=== PATIENT | female | born 1950 | race African-American/Black ===

== ENCOUNTER 2018-05-06 21:10 | Inpatient (IN) | payer MEDICARE, OTHER ==
[~2018-05-06] VITALS: Ht 167.6 cm; Wt 118.9 kg
--- NOTE | 2018-05-06 21:25 | NUR ---
PT C/O GENERAL MALAISEx2 WEEKS ACCOMPANIED W/ N/V. STATES INTERMITTENT PERIODS OF DIZZINESS W/ ACTIVITY. DENIES CP/SOB. PT HX OF AFIB AND CHF. 5 LEAD IN ED SHOWS HR BETWEEN 110-155. PT STATES MISSING "A COUPLE DOSES OF MY XARELTO" THIS LAST WEEK. ALL MONITORING APPLIED. CALL LIGHT WITHIN REACH.
[2018-05-06] MEDS ORDERED: DILTIAZEM 5 MG/ML, 5ML ONE (21:41)
[2018-05-06] MEDS ORDERED: ONDANSETRON 2MG/ML, 2ML ONE (21:51)
[2018-05-06] MEDS ORDERED: DILTIAZEM 5 MG/ML, 5ML IV ONE (22:00)
[2018-05-06] MEDS ORDERED: ONDANSETRON 2MG/ML, 2ML IVPush ONE (22:00)
[2018-05-06] MEDS ORDERED: SODIUM CHLORIDE 0.9% 1,000ML IVBOLUS ONE (22:00)
[2018-05-06 22:04] LABS: INTERNATIONAL NORMALIZED RATIO 1.22 (0.93-1.1); PROTHROMBIN TIME 12.8 Seconds (9.6-11.5)
[2018-05-06 22:07] LABS: ALBUMIN 3.5 g/dL (3.4-5.0); ANION GAP 9 mmol/L (5-15); CALCIUM 8.9 mg/dL (8.5-10.1); CHLORIDE 111 mmol/L (98-107); CREATININE 1.97 mg/dL (0.55-1.02)
[2018-05-06 22:08] LABS: BASOPHILS # (AUTO) 0.04 x10^3/uL (0-0.1); BASOPHILS % (AUTO) 1 % (0-1); EOSINOPHILS # (AUTO) 0.09 x10^3/uL (0-0.4); EOSINOPHILS % (AUTO) 1 % (1-7); LYMPHOCYTES # (AUTO) 1.41 x10^3/uL (1-3.4); LYMPHOCYTES % (AUTO) 21 % (22-44); MD NO; MEAN CORPUSCULAR HEMOGLOBIN 30.4 pg (27.0-34.8); MEAN CORPUSCULAR HGB CONC 33.2 g/dL (32.4-35.8); MEAN CORPUSCULAR VOLUME 91.7 fL (80-100); MEAN PLATELET VOLUME 8.7 fL (7.4-10.4); MONOCYTES % (AUTO) 9 % (2-9); NEUTROPHILS # (AUTO) 4.72 x10^3/uL (1.8-6.8); NEUTROPHILS % (AUTO) 69 % (42-75); PLATELET COUNT 220 x10^3/uL (130-400); RED BLOOD COUNT 4.47 x10^6/uL (3.82-5.3); RED CELL DISTRIBUTION WIDTH 17.1 % (9.6-15.2)
--- NOTE | 2018-05-06 22:09 | NUR ---
PT DOES NOT KNOW ALL MEDICATIONS. MED REC POSTPONED.
[2018-05-06 22:10] LABS: TROPONIN I < 0.015 ng/mL (0.000-0.045)
[2018-05-06] MEDS ORDERED: DILTIAZEM (22:10)
[2018-05-06] MEDS ORDERED: METOPROLOL (22:10)
[2018-05-06] MEDS ORDERED: RIVA10TA2 PO (22:10)
[2018-05-06] MEDS ORDERED: DILTIAZEM 60 MG TABLET ONE (22:11)
[2018-05-06] MEDS ORDERED: ACETAMINOPHEN 500 MG TABLET ONE (22:15)
[2018-05-06] MEDS ORDERED: DILTIAZEM 30 MG TABLET PO SCH (22:30)
[2018-05-06] MEDS ORDERED: ACETAMINOPHEN 500 MG TABLET PO ONE (22:30)
[2018-05-06] MEDS ORDERED: DILTIAZEM 30 MG TABLET PO ONE (23:00)
[2018-05-06 23:22] LABS: RAPID INFLUENZA A Negative (Negative); RAPID INFLUENZA B Negative (Negative)
--- NOTE | 2018-05-06 23:27 | NUR ---
PT HR REMAINS 80-110. AWARE. NO NEW ORDERS AT THIS TIME. NADN. NO IMMEDIATE NEEDS FROM PT. PT TBADM. AWAITING ADM BED.
[2018-05-06] MEDS: SODIUM CHLORIDE 0.9% 1,000 ML IV SCH (23:54)
[2018-05-07] MEDS ORDERED: LABETALOL 5MG/ML, 20ML IVPush PRN
[2018-05-07] MEDS ORDERED: POLYETHYLENE GLYCOL 17 GM PACKET PO PRN
[2018-05-07] MEDS ORDERED: DOCUSATE 100 MG CAPSULE PO PRN
[2018-05-07] MEDS ORDERED: DILTIAZEM 125 MG in SODIUM CHLORIDE 0.9% 100 ML IV PRN
[2018-05-07] MEDS ORDERED: BISACODYL 10 MG SUPP PR PRN
[2018-05-07] MEDS ORDERED: hydrALAzine 20 MG/ML, 1ML IVPush PRN
--- NOTE | 2018-05-07 00:24 | NUR ---
PT IN [place]. TO BE TRANSPORTED WHEN BACK.
[2018-05-07 00:37] LABS: FREE T4 (FREE THYROXINE) 1.49 ng/dL (0.76-1.46); THYROID STIMULATING HORMONE 1.68 mIU/L (0.358-3.740)
[2018-05-07 00:52] LABS: HEMOGLOBIN A1C 6.1 % (4.2-6.3)
[2018-05-07 01:05] VITALS: BP 127/79
[2018-05-07] MEDS ORDERED: DILTIAZEM 125 MG in SODIUM CHLORIDE 0.9% 100 ML IV SCH (02:30)
[2018-05-07 05:41] LABS: CHLORIDE 114 mmol/L (98-107)
[2018-05-07 05:44] LABS: BASOPHILS # (AUTO) 0.04 x10^3/uL (0-0.1); BASOPHILS % (AUTO) 1 % (0-1); EOSINOPHILS % (AUTO) 2 % (1-7); LYMPHOCYTES # (AUTO) 1.15 x10^3/uL (1-3.4); LYMPHOCYTES % (AUTO) 22 % (22-44); MD NO; MEAN CORPUSCULAR HEMOGLOBIN 29.9 pg (27.0-34.8); MEAN CORPUSCULAR HGB CONC 32.6 g/dL (32.4-35.8); MEAN CORPUSCULAR VOLUME 91.6 fL (80-100); MEAN PLATELET VOLUME 9.1 fL (7.4-10.4); MONOCYTES # (AUTO) 0.58 x10^3/uL (0.2-0.8); MONOCYTES % (AUTO) 11 % (2-9); NEUTROPHILS # (AUTO) 3.42 x10^3/uL (1.8-6.8); NEUTROPHILS % (AUTO) 65 % (42-75); PLATELET COUNT 208 x10^3/uL (130-400); RED BLOOD COUNT 4.04 x10^6/uL (3.82-5.3); RED CELL DISTRIBUTION WIDTH 17.1 % (9.6-15.2)
[2018-05-07 05:45] LABS: ALANINE AMINOTRANSFERASE 80 U/L (12-78); ALBUMIN 3.2 g/dL (3.4-5.0); ALKALINE PHOSPHATASE 89 U/L (45-117); ANION GAP 5 mmol/L (5-15); BILIRUBIN,TOTAL 0.7 mg/dL (0.2-1.0); CALCIUM 8.7 mg/dL (8.5-10.1); CHOL/HDL RATIO 2.7; CHOLESTEROL, TOTAL 104 mg/dL (140-239); CREATININE 1.86 mg/dL (0.55-1.02); HDL CHOL % 38 % (28-40); HDL CHOLESTEROL (DIRECT) 39 mg/dL (40-60); LDL CHOLESTEROL,CALCULATED 53 mg/dL (54-169); LDL/HDL RATIO 1.4 (0.5-3.0); TOTAL PROTEIN 6.2 g/dL (6.4-8.2); TRIGLYCERIDES 62 mg/dL (50-200); VLDL CHOLESTEROL 12 mg/dL (0-25)
[2018-05-07 07:10] VITALS: BP 107/69
[2018-05-07] MEDS: RIVAROXABAN 10 MG TABLET PO SCH (08:30)
[2018-05-07] MEDS: SODIUM CHLORIDE 0.9% 1,000 ML IV SCH (08:30)
[2018-05-07] MEDS ORDERED: POTASSIUM CHLORIDE 40 MEQ in SODIUM CHLORIDE 0.9% 500 ML IV ONE (10:30)
[2018-05-07 13:15] VITALS: BP 119/68
[2018-05-07 20:26] VITALS: BP 116/74
[2018-05-07] MEDS: ONDANSETRON 2MG/ML, 2ML IVPush PRN (21:07)
[2018-05-08] MEDS ORDERED: DILTIAZEM 125 MG in SODIUM CHLORIDE 0.9% 100 ML IV PRN
[2018-05-08] MEDS ORDERED: ALBUTEROL SULFATE 2.5 MG/3 ML NPPB PRN (00:30)
[2018-05-08 01:45] VITALS: BP 104/71
[2018-05-08] MEDS: ONDANSETRON 2MG/ML, 2ML IVPush PRN ×3 (02:44→18:19)
[2018-05-08] MEDS: DILTIAZEM 125 MG in SODIUM CHLORIDE 0.9% 100 ML IV SCH ×2 (05:13→15:30)
[2018-05-08 06:55] VITALS: BP 101/71
[2018-05-08 07:51] LABS: ANION GAP 10 mmol/L (5-15); CHLORIDE 112 mmol/L (98-107); CREATININE 2.31 mg/dL (0.55-1.02)
[2018-05-08 08:01] LABS: CALCIUM 8.5 mg/dL (8.5-10.1)
[2018-05-08] MEDS: RIVAROXABAN 10 MG TABLET PO SCH (08:18)
[2018-05-08] MEDS ORDERED: DIGOXIN 0.25 MG/ML, 2ML IVPush ONE (11:30)
[2018-05-08 15:59] VITALS: BP 136/93
[2018-05-08 19:22] VITALS: BP 142/89
[2018-05-08] MEDS: morphine SULFATE 10 MG/ML, 1ML IVPush PRN ×2 (20:15→23:31)
[2018-05-09] MEDS: ONDANSETRON 2MG/ML, 2ML IVPush PRN ×4 (00:10→20:17)
[2018-05-09 02:55] VITALS: BP 103/67
[2018-05-09] MEDS: morphine SULFATE 10 MG/ML, 1ML IVPush PRN ×3 (02:56→14:41)
[2018-05-09] MEDS: DILTIAZEM 125 MG in SODIUM CHLORIDE 0.9% 100 ML IV SCH ×2 (03:23→14:41)
[2018-05-09] MEDS: RIVAROXABAN 10 MG TABLET PO SCH (07:51)
[2018-05-09] MEDS: DIGOXIN 0.25 MG TABLET PO SCH (07:51)
[2018-05-09 10:46] LABS: ANION GAP 10 mmol/L (5-15); CALCIUM 8.8 mg/dL (8.5-10.1); CHLORIDE 112 mmol/L (98-107)
[2018-05-09 10:47] LABS: CREATININE 1.97 mg/dL (0.55-1.02)
[2018-05-09] MEDS ORDERED: HEPARIN 5,000 UNITS/ML, 1ML IV PRN (12:00)
[2018-05-09] MEDS ORDERED: HEPARIN 5,000 UNITS/ML, 1ML IV ONE (12:00)
[2018-05-09] MEDS ORDERED: HEPARIN 25,000 UNITS/500ML PMX 500 ML IV PRN (12:00)
[2018-05-09 13:42] VITALS: BP 134/83
[2018-05-09] MEDS ORDERED: GASTROGRAFIN 120 ML SOLN PO ONE (18:25)
[2018-05-09 19:29] VITALS: BP 136/84
[2018-05-10 02:56] VITALS: BP 124/83
[2018-05-10] MEDS: DILTIAZEM 125 MG in SODIUM CHLORIDE 0.9% 100 ML IV SCH ×2 (03:01→17:00)
[2018-05-10] MEDS: morphine SULFATE 10 MG/ML, 1ML IVPush PRN ×4 (05:30→20:53)
[2018-05-10] MEDS: ONDANSETRON 2MG/ML, 2ML IVPush PRN ×2 (05:30→20:53)
[2018-05-10 06:19] LABS: ANION GAP 9 mmol/L (5-15); CALCIUM 8.8 mg/dL (8.5-10.1); CHLORIDE 112 mmol/L (98-107); CREATININE 1.86 mg/dL (0.55-1.02)
[2018-05-10 06:31] LABS: BASOPHILS # (AUTO) 0.02 x10^3/uL (0-0.1); BASOPHILS % (AUTO) 0 % (0-1); EOSINOPHILS # (AUTO) 0.11 x10^3/uL (0-0.4); EOSINOPHILS % (AUTO) 2 % (1-7); LYMPHOCYTES % (AUTO) 15 % (22-44); MD NO; MEAN CORPUSCULAR HEMOGLOBIN 30.7 pg (27.0-34.8); MEAN CORPUSCULAR HGB CONC 33.5 g/dL (32.4-35.8); MEAN CORPUSCULAR VOLUME 91.8 fL (80-100); MEAN PLATELET VOLUME 8.7 fL (7.4-10.4); MONOCYTES # (AUTO) 0.83 x10^3/uL (0.2-0.8); MONOCYTES % (AUTO) 12 % (2-9); NEUTROPHILS # (AUTO) 5.16 x10^3/uL (1.8-6.8); NEUTROPHILS % (AUTO) 72 % (42-75); PLATELET COUNT 243 x10^3/uL (130-400); RED BLOOD COUNT 4.23 x10^6/uL (3.82-5.3); RED CELL DISTRIBUTION WIDTH 17.1 % (9.6-15.2)
[2018-05-10 07:15] VITALS: BP 123/86
[2018-05-10] MEDS: DIGOXIN 0.25 MG TABLET PO SCH (08:52)
[2018-05-10] MEDS ORDERED: HEPARIN 5,000 UNITS/ML, 1ML IV ONE (09:00)
[2018-05-10] MEDS: HEPARIN 25,000 UNITS/500ML PMX 500 ML IV PRN (10:31)
[2018-05-10] MEDS ORDERED: FUROSEMIDE 40 MG TABLET ONE (10:38)
[2018-05-10] MEDS: FUROSEMIDE 40 MG TABLET PO SCH (10:41)
[2018-05-10] MEDS: ONDANSETRON ODT 4 MG PO PRN (12:13)
[2018-05-10 14:27] VITALS: BP 144/71
[2018-05-10 19:28] VITALS: BP 145/107
[2018-05-10 19:42] VITALS: BP 151/96
[2018-05-11] MEDS: morphine SULFATE 10 MG/ML, 1ML IVPush PRN ×5 (00:56→20:04)
[2018-05-11 00:57] VITALS: BP 120/78
[2018-05-11] MEDS: HEPARIN 5,000 UNITS/ML, 1ML IV PRN ×2 (01:17→15:33)
[2018-05-11] MEDS: DILTIAZEM 125 MG in SODIUM CHLORIDE 0.9% 100 ML IV SCH ×2 (05:00→20:04)
[2018-05-11 07:07] VITALS: BP 127/68
[2018-05-11 07:24] LABS: ANION GAP 8 mmol/L (5-15); CALCIUM 8.8 mg/dL (8.5-10.1); CHLORIDE 112 mmol/L (98-107); CREATININE 1.78 mg/dL (0.55-1.02)
[2018-05-11 07:34] LABS: MEAN CORPUSCULAR HEMOGLOBIN 30.1 pg (27.0-34.8); MEAN CORPUSCULAR HGB CONC 32.5 g/dL (32.4-35.8); MEAN CORPUSCULAR VOLUME 92.6 fL (80-100); MEAN PLATELET VOLUME 8.3 fL (7.4-10.4); PLATELET COUNT 226 x10^3/uL (130-400); RED BLOOD COUNT 4.19 x10^6/uL (3.82-5.3); RED CELL DISTRIBUTION WIDTH 17.6 % (9.6-15.2)
[2018-05-11] MEDS: FUROSEMIDE 40 MG TABLET PO SCH (08:32)
[2018-05-11] MEDS: DIGOXIN 0.25 MG TABLET PO SCH (08:33)
[2018-05-11 08:48] LABS: MD YES
[2018-05-11 08:50] LABS: BAND#(MANUAL) 0.12 x10^3/uL; BANDS%(MANUAL) 2 % (0-7); BASOS#(MANUAL) 0.06 x10^3/uL (0-0.1); BASOS% (MANUAL) 1 % (0-1); EOS#(MANUAL) 0.25 x10^3/uL (0.0-0.4); EOS% (MANUAL) 4 % (1-7); LYMPH#(MANUAL) 0.99 x10^3/uL (1-3.4); LYMPHS% (MANUAL) 16 % (22-44); METAMYELOCYTES# (MANUAL) 0.06 x10^3/uL (0-0); METAMYELOCYTES% (MANUAL) 1 % (0-1); MONOS#(MANUAL) 0.87 x10^3/uL (0.3-2.7); MONOS% (MANUAL) 14 % (2-9); REACTIVE LYMPHS # (MANUAL) 0.06 x10^3/uL (0-0); REACTIVE LYMPHS % (MANUAL) 1 % (0-0); SEG#(MANUAL) 3.78 x10^3/uL (1.8-6.8); SEGS% (MANUAL) 61 % (42-75)
[2018-05-11 08:51] LABS: <PLATELET ESTIMATE> ADEQUATE; <PLT MORPHOLOGY> NORMAL PLT MORPH; <RBC MORPHOLOGY> NORMAL
[2018-05-11] MEDS ORDERED: FUROSEMIDE 40 MG TABLET PO SCH (09:00)
[2018-05-11 14:25] VITALS: BP 106/74
[2018-05-11] MEDS: ONDANSETRON ODT 4 MG PO PRN (14:36)
[2018-05-11] MEDS: HEPARIN 25,000 UNITS/500ML PMX 500 ML IV PRN (15:36)
[2018-05-11] MEDS: ONDANSETRON 2MG/ML, 2ML IVPush PRN (17:52)
[2018-05-11] MEDS ORDERED: METOPROLOL TARTRATE 25 MG TABLET PO SCH (18:00)
[2018-05-11 18:53] VITALS: BP 104/70
[2018-05-12] MEDS: morphine SULFATE 10 MG/ML, 1ML IVPush PRN ×5 (00:08→21:39)
[2018-05-12] MEDS: ONDANSETRON 2MG/ML, 2ML IVPush PRN ×4 (00:08→19:55)
[2018-05-12 00:32] VITALS: BP 100/69
[2018-05-12 02:00] LABS: ANION GAP 7 mmol/L (5-15); CALCIUM 8.3 mg/dL (8.5-10.1); CHLORIDE 109 mmol/L (98-107); CREATININE 1.58 mg/dL (0.55-1.02)
[2018-05-12] MEDS: HEPARIN 5,000 UNITS/ML, 1ML IV PRN (02:34)
[2018-05-12 09:20] VITALS: BP 111/73
[2018-05-12] MEDS: DIGOXIN 0.25 MG TABLET PO SCH (09:28)
[2018-05-12] MEDS: FUROSEMIDE 40 MG TABLET PO SCH (09:28)
[2018-05-12] MEDS: HEPARIN 25,000 UNITS/500ML PMX 500 ML IV PRN (12:47)
[2018-05-12] MEDS: DILTIAZEM 125 MG in SODIUM CHLORIDE 0.9% 100 ML IV SCH (12:50)
[2018-05-12 15:25] VITALS: BP 124/69
[2018-05-12 18:37] VITALS: BP 123/92
[2018-05-13 01:23] VITALS: BP 119/84
[2018-05-13 04:54] LABS: BASOPHILS # (AUTO) 0.02 x10^3/uL (0-0.1); BASOPHILS % (AUTO) 0 % (0-1); EOSINOPHILS # (AUTO) 0.14 x10^3/uL (0-0.4); EOSINOPHILS % (AUTO) 3 % (1-7); LYMPHOCYTES # (AUTO) 0.71 x10^3/uL (1-3.4); LYMPHOCYTES % (AUTO) 14 % (22-44); MD NO; MEAN CORPUSCULAR HEMOGLOBIN 29.9 pg (27.0-34.8); MEAN CORPUSCULAR HGB CONC 32.6 g/dL (32.4-35.8); MEAN CORPUSCULAR VOLUME 91.6 fL (80-100); MEAN PLATELET VOLUME 8.3 fL (7.4-10.4); MONOCYTES % (AUTO) 10 % (2-9); NEUTROPHILS # (AUTO) 3.69 x10^3/uL (1.8-6.8); NEUTROPHILS % (AUTO) 73 % (42-75); PLATELET COUNT 215 x10^3/uL (130-400); RED BLOOD COUNT 3.99 x10^6/uL (3.82-5.3); RED CELL DISTRIBUTION WIDTH 17.1 % (9.6-15.2)
[2018-05-13] MEDS: morphine SULFATE 10 MG/ML, 1ML IVPush PRN ×2 (04:56→22:49)
[2018-05-13 05:04] LABS: ALANINE AMINOTRANSFERASE 51 U/L (12-78); ANION GAP 8 mmol/L (5-15); CALCIUM 8.9 mg/dL (8.5-10.1); CHLORIDE 108 mmol/L (98-107); CREATININE 1.37 mg/dL (0.55-1.02)
[2018-05-13 05:07] LABS: ALKALINE PHOSPHATASE 83 U/L (45-117); BILIRUBIN,TOTAL 0.5 mg/dL (0.2-1.0); TOTAL PROTEIN 6.2 g/dL (6.4-8.2)
[2018-05-13 07:29] VITALS: BP 123/82
[2018-05-13] MEDS: DIGOXIN 0.25 MG TABLET PO SCH (07:31)
[2018-05-13] MEDS: ONDANSETRON 2MG/ML, 2ML IVPush PRN (07:31)
[2018-05-13] MEDS: FUROSEMIDE 40 MG TABLET PO SCH (09:04)
[2018-05-13] MEDS ORDERED: POTASSIUM CHLORIDE 40 MEQ in SODIUM CHLORIDE 0.9% 500 ML IV ONE (10:00)
[2018-05-13] MEDS: DILTIAZEM 125 MG in SODIUM CHLORIDE 0.9% 100 ML IV SCH (12:07)
[2018-05-13 14:15] VITALS: BP 141/93
[2018-05-13] MEDS ORDERED: FENTANYL PF 250 MCG/5ML ONE (18:47)
[2018-05-13] MEDS ORDERED: MIDAZOLAM 1 MG/ML, 2ML ONE (18:48)
[2018-05-13] MEDS ORDERED: BUPIVACAINE/PF 0.5% ONE (19:10)
[2018-05-13] MEDS ORDERED: ONDANSETRON 2MG/ML, 2ML ONE ×2 (19:24→20:47)
[2018-05-13] MEDS ORDERED: ROCURONIUM 10 MG/ML,10ML ONE (19:24)
[2018-05-13] MEDS ORDERED: SUCCINYLCHOLINE 20 MG/ML, 10ML ONE (19:24)
[2018-05-13] MEDS ORDERED: CEFAZOLIN 1,000 MG ONE (19:24)
[2018-05-13] MEDS ORDERED: OXYcodone 5 MG/5 ML ORAL.SOL UDC PO PRN (20:00)
[2018-05-13] MEDS ORDERED: LABETALOL 5MG/ML, 20ML IV PRN (20:00)
[2018-05-13] MEDS ORDERED: hydrALAzine 20 MG/ML, 1ML IV PRN (20:00)
[2018-05-13] MEDS ORDERED: ONDANSETRON ODT 8 MG PO PRN (20:00)
[2018-05-13] MEDS ORDERED: PROMETHAZINE 12.5 MG SUPP PR PRN (20:00)
[2018-05-13] MEDS ORDERED: ONDANSETRON 2MG/ML, 2ML IV PRN (20:00)
[2018-05-13] MEDS ORDERED: THROMBIN 5,000 UNIT VIAL TP ONE (20:11)
[2018-05-13] MEDS ORDERED: SUGAMMADEX 200 MG/2 ML IVPush ONE (20:25)
[2018-05-13] MEDS ORDERED: HYDROmorphone 2 MG/ML, 1ML ONE ×2 (20:47→21:33)
[2018-05-13] MEDS: HYDROmorphone 1 MG/ML, 1ML IV PRN ×5 (20:51→21:35)
[2018-05-13] MEDS ORDERED: FENTANYL PF 100 MCG/2ML ONE (20:53)
[2018-05-13] MEDS: FENTANYL PF 100 MCG/2ML IV PRN ×2 (20:56→21:06)
[2018-05-13 21:50] VITALS: BP 160/83
[2018-05-14] MEDS: morphine SULFATE 10 MG/ML, 1ML IVPush PRN ×4 (00:54→17:52)
[2018-05-14 02:30] VITALS: BP 105/70
[2018-05-14] MEDS: ONDANSETRON 2MG/ML, 2ML IVPush PRN (03:13)
[2018-05-14 05:18] LABS: BASOPHILS # (AUTO) 0.01 x10^3/uL (0-0.1); BASOPHILS % (AUTO) 0 % (0-1); EOSINOPHILS % (AUTO) 0 % (1-7); LYMPHOCYTES # (AUTO) 0.49 x10^3/uL (1-3.4); LYMPHOCYTES % (AUTO) 6 % (22-44); MD NO; MEAN CORPUSCULAR HEMOGLOBIN 30.5 pg (27.0-34.8); MEAN CORPUSCULAR HGB CONC 33.3 g/dL (32.4-35.8); MEAN CORPUSCULAR VOLUME 91.7 fL (80-100); MEAN PLATELET VOLUME 8.2 fL (7.4-10.4); MONOCYTES # (AUTO) 0.54 x10^3/uL (0.2-0.8); MONOCYTES % (AUTO) 7 % (2-9); NEUTROPHILS # (AUTO) 7.05 x10^3/uL (1.8-6.8); NEUTROPHILS % (AUTO) 87 % (42-75); PLATELET COUNT 227 x10^3/uL (130-400); RED CELL DISTRIBUTION WIDTH 17.7 % (9.6-15.2)
[2018-05-14 05:30] LABS: ALBUMIN 3.2 g/dL (3.4-5.0); ANION GAP 8 mmol/L (5-15); CALCIUM 8.6 mg/dL (8.5-10.1); CHLORIDE 105 mmol/L (98-107)
[2018-05-14 05:36] LABS: ALANINE AMINOTRANSFERASE 65 U/L (12-78); ALKALINE PHOSPHATASE 90 U/L (45-117); BILIRUBIN,TOTAL 0.7 mg/dL (0.2-1.0); CREATININE 1.22 mg/dL (0.55-1.02); TOTAL PROTEIN 6.6 g/dL (6.4-8.2)
[2018-05-14 07:35] VITALS: BP 159/86
[2018-05-14] MEDS: PROMETHAZINE 25 MG/ML, 1ML IM PRN ×2 (07:46→20:49)
[2018-05-14] MEDS: FUROSEMIDE 40 MG TABLET PO SCH (07:49)
[2018-05-14] MEDS: DIGOXIN 0.25 MG TABLET PO SCH (07:49)
[2018-05-14 12:33] VITALS: BP 146/84
[2018-05-14] MEDS: DILTIAZEM 60 MG TABLET PO SCH ×2 (13:03→20:48)
[2018-05-14] MEDS: OXYcodone/APAP 5/325MG TABLET PO PRN ×2 (13:03→20:49)
[2018-05-14 19:50] VITALS: BP 126/83
[2018-05-14] MEDS ORDERED: MAGNESIUM SULFATE 4 GM in SODIUM CHLORIDE 0.9% 100 ML IV ONE (20:30)
[2018-05-15 00:55] VITALS: BP 125/79
[2018-05-15] MEDS: DILTIAZEM 125 MG in SODIUM CHLORIDE 0.9% 100 ML IV SCH (02:30)
[2018-05-15] MEDS: DILTIAZEM 60 MG TABLET PO SCH ×3 (04:07→14:35)
[2018-05-15] MEDS: OXYcodone/APAP 5/325MG TABLET PO PRN ×3 (04:57→16:50)
[2018-05-15 06:54] VITALS: BP 110/53
[2018-05-15] MEDS: DIGOXIN 0.25 MG TABLET PO SCH (09:07)
[2018-05-15] MEDS: FUROSEMIDE 40 MG TABLET PO SCH (09:07)
[2018-05-15] MEDS: PROMETHAZINE 25 MG/ML, 1ML IM PRN (11:17)
[2018-05-15] MEDS ORDERED: DILT180C53 PO (11:52)
[2018-05-15] MEDS ORDERED: DOCU-131 PO (11:52)
[2018-05-15] MEDS ORDERED: METO25TA35 PO (11:52)
[2018-05-15] MEDS ORDERED: OXYC-302 PO (11:52)
[2018-05-15] MEDS ORDERED: METOPROLOL TARTRATE 25 MG TABLET PO SCH (12:00)
== END 2018-05-15 17:28 | disposition home or self-care (01) | DRG 417 ==
LOC: ED 23:00 → 5SO 05-07 01:23
PROVIDERS: ADMIT Internal Medicine; ATTEND Internal Medicine
PROC: 0FT44ZZ Resection of Gallbladder, Percutaneous Endoscopic Approach (ICD-10-PCS; principal; 2018-05-13 19:00)
DX: K80.10 Calculus of gallbladder with chronic cholecystitis without obstruction (principal); N17.0 Acute kidney failure with tubular necrosis; D68.69 Other thrombophilia; I13.0 Hypertensive heart and chronic kidney disease with heart failure and stage 1 through stage 4 chronic kidney disease, or unspecified chronic kidney disease; J98.11 Atelectasis; I48.91 Unspecified atrial fibrillation; Z88.6 Allergy status to analgesic agent; Z88.8 Allergy status to other drugs, medicaments and biological substances; E78.5 Hyperlipidemia, unspecified; E86.0 Dehydration; I50.9 Heart failure, unspecified; J45.909 Unspecified asthma, uncomplicated; K82.8 Other specified diseases of gallbladder; N18.3 Chronic kidney disease, stage 3 (moderate); T45.515A Adverse effect of anticoagulants, initial encounter; Y92.89 Other specified places as the place of occurrence of the external cause; Z79.01 Long term (current) use of anticoagulants; Z82.3 Family history of stroke; Z86.711 Personal history of pulmonary embolism; Z79.899 Other long term (current) drug therapy
CPT/HCPCS: 36415; 71045; 74176; 74270; 76700; 78227; 80048; 80053; 80061; 82040; 83036; 83735; 83880; 84439; 84443; 84484; 85025; 85520; 85610; 87400; 88304; 93005; 94640; 96374; 96375; 99291; G0378; J0690; J1170; J1644; J2250; J2405; J2550; J3010; J3475; J3480; J3490; J7613; Q0162; Q9963; A9537; C1760; C9898; J0330; J1160; J2270; J7030; J7040

== ENCOUNTER 2018-05-27 17:41 | Inpatient (IN) | payer MEDICARE ==
[~2018-05-27] VITALS: Ht 167.6 cm; Wt 116.4 kg
[~2018-05-27 17:41] MED LIST: DILT180C53 PO; DILTIAZEM; DOCU-131 PO; FLUT9.9S NS; FURO40TA6 PO; LORA-247 PO; METO25TA35 PO; METOPROLOL; OXYC-302 PO; RIVA10TA2 PO
--- NOTE | 2018-05-27 17:55 | NUR ---
PT TO ED VIA AMBULANCE FOR N/V, ABD PAIN AND PRODUCTIVE COUGH SINCE LAP LUIS FELIPE ON 20-MAY-2018. NO HEMATURIA. CONNECTED TO ALL MONITORS. A FIB RVR, RATE OF 100-160 WTIH EXERTION AND DURING COUGHING. ALL OTHER VSS. AWAITING MD ASSESSMENT AND ORDERS. CALL LIGHT WITHIN REACH. NO NEEDS AT THIS TIME.
[2018-05-27] MEDS ORDERED: SODIUM CHLORIDE FLUSH 10ML SYR IVF ONE (18:30)
--- NOTE | 2018-05-27 18:46 | NUR ---
MD TO BEDSIDE FOR ASSESSMENT. AWAITING ORDERS.
[2018-05-27 18:58] LABS: ALANINE AMINOTRANSFERASE 26 U/L (12-78); ALBUMIN 3.2 g/dL (3.4-5.0); ANION GAP 10 mmol/L (5-15); CALCIUM 8.6 mg/dL (8.5-10.1); CHLORIDE 105 mmol/L (98-107); CREATININE 1.73 mg/dL (0.55-1.02)
[2018-05-27 19:00] LABS: ALKALINE PHOSPHATASE 101 U/L (45-117); BILIRUBIN,TOTAL 0.4 mg/dL (0.2-1.0); TOTAL PROTEIN 7.1 g/dL (6.4-8.2)
[2018-05-27] MEDS ORDERED: MORPHINE SULFATE 4 MG/ML, 1ML IVPush ONE (19:00)
[2018-05-27] MEDS ORDERED: ONDANSETRON 2MG/ML, 2ML IVPush ONE (19:00)
[2018-05-27 19:02] LABS: BASOPHILS # (AUTO) 0.05 x10^3/uL (0-0.1); BASOPHILS % (AUTO) 1 % (0-1); EOSINOPHILS # (AUTO) 0.07 x10^3/uL (0-0.4); EOSINOPHILS % (AUTO) 1 % (1-7); LYMPHOCYTES # (AUTO) 0.93 x10^3/uL (1-3.4); LYMPHOCYTES % (AUTO) 15 % (22-44); MD NO; MEAN CORPUSCULAR HEMOGLOBIN 29.6 pg (27.0-34.8); MEAN CORPUSCULAR HGB CONC 32.7 g/dL (32.4-35.8); MEAN CORPUSCULAR VOLUME 90.5 fL (80-100); MEAN PLATELET VOLUME 8.1 fL (7.4-10.4); MONOCYTES # (AUTO) 0.75 x10^3/uL (0.2-0.8); MONOCYTES % (AUTO) 12 % (2-9); NEUTROPHILS # (AUTO) 4.44 x10^3/uL (1.8-6.8); NEUTROPHILS % (AUTO) 71 % (42-75); PLATELET COUNT 370 x10^3/uL (130-400); RED BLOOD COUNT 4.32 x10^6/uL (3.82-5.3); RED CELL DISTRIBUTION WIDTH 17.3 % (9.6-15.2)
[2018-05-27] MEDS ORDERED: ONDANSETRON 2MG/ML, 2ML ONE (19:12)
[2018-05-27] MEDS ORDERED: MORPHINE SULFATE 4 MG/ML, 1ML ONE (19:13)
--- NOTE | 2018-05-27 19:26 | NUR ---
PT MEDICATED PER JUN. TECH AT BEDSIDE TO COMPLETE EKG. NO NEEDS AT THIS TIME. FAMILY AT BEDSIDE. CALL LIGHT WITHIN REACH.
[2018-05-27 19:34] LABS: C-REACTIVE PROTEIN, QUANT 2.4 mg/dL (0.02-0.49)
--- NOTE | 2018-05-27 19:39 | NUR ---
PT TO CT.
[2018-05-27] MEDS ORDERED: OMNIPAQUE 350 MG/ML, 100ML BOTTLE ONE (19:59)
--- NOTE | 2018-05-27 19:59 | NUR ---
PT BACK FROM CT
--- NOTE | 2018-05-27 20:56 | NUR ---
MD TO BEDSIDE TO UPDATE PT ON POC. NO NEEDS AT THIS TIME. HTN, ALL OHTER VSS. NO NEEDS AT THIS TIME.
[2018-05-27] MEDS ORDERED: ARNUITY ELLIPTA (22:10)
[2018-05-27] MEDS ORDERED: OXYCODONE (22:10)
[2018-05-27 22:30] VITALS: BP 145/95
[2018-05-27] MEDS ORDERED: BISACODYL 10 MG SUPP PR PRN (22:30)
[2018-05-27] MEDS: NS + 20MEQ KCL 1,000 ML IV SCH (23:08)
[2018-05-27] MEDS: METOPROLOL TARTRATE 25 MG TABLET PO SCH (23:09)
[2018-05-27] MEDS: HYDROmorphone 2 MG/ML, 1ML IVPush PRN (23:10)
[2018-05-28 01:36] VITALS: BP 125/87
[2018-05-28] MEDS: HYDROmorphone 2 MG/ML, 1ML IVPush PRN ×3 (04:36→20:18)
[2018-05-28 05:23] LABS: BASOPHILS # (AUTO) 0.04 x10^3/uL (0-0.1); BASOPHILS % (AUTO) 1 % (0-1); EOSINOPHILS # (AUTO) 0.13 x10^3/uL (0-0.4); EOSINOPHILS % (AUTO) 2 % (1-7); LYMPHOCYTES # (AUTO) 0.92 x10^3/uL (1-3.4); LYMPHOCYTES % (AUTO) 16 % (22-44); MD NO; MEAN CORPUSCULAR HEMOGLOBIN 29.6 pg (27.0-34.8); MEAN CORPUSCULAR HGB CONC 32.4 g/dL (32.4-35.8); MEAN CORPUSCULAR VOLUME 91.3 fL (80-100); MEAN PLATELET VOLUME 8.1 fL (7.4-10.4); MONOCYTES % (AUTO) 12 % (2-9); NEUTROPHILS # (AUTO) 3.92 x10^3/uL (1.8-6.8); NEUTROPHILS % (AUTO) 69 % (42-75); PLATELET COUNT 332 x10^3/uL (130-400); RED CELL DISTRIBUTION WIDTH 17.5 % (9.6-15.2)
[2018-05-28 05:31] LABS: ALANINE AMINOTRANSFERASE 24 U/L (12-78); ALBUMIN 3.1 g/dL (3.4-5.0); ANION GAP 7 mmol/L (5-15); CALCIUM 8.6 mg/dL (8.5-10.1); CHLORIDE 106 mmol/L (98-107); CREATININE 1.71 mg/dL (0.55-1.02)
[2018-05-28 05:33] LABS: ALKALINE PHOSPHATASE 101 U/L (45-117); BILIRUBIN,TOTAL 0.5 mg/dL (0.2-1.0); TOTAL PROTEIN 6.7 g/dL (6.4-8.2)
[2018-05-28 08:17] LABS: INTERNATIONAL NORMALIZED RATIO 1.23 (0.93-1.1); PROTHROMBIN TIME 12.9 Seconds (9.6-11.5)
[2018-05-28] MEDS: LORATADINE 10 MG TABLET PO SCH (08:53)
[2018-05-28] MEDS: METOPROLOL TARTRATE 25 MG TABLET PO SCH ×2 (08:54→20:13)
[2018-05-28] MEDS: DILTIAZEM CD 180 MG CAP.ER.24H PO SCH (08:54)
[2018-05-28] MEDS ORDERED: FUROSEMIDE 40 MG TABLET PO SCH (09:00)
[2018-05-28 09:09] VITALS: BP 122/87
[2018-05-28] MEDS ORDERED: MIDAZOLAM 1 MG/ML, 5ML ONE (09:43)
[2018-05-28] MEDS ORDERED: NALOXONE 1 MG/ML, 2ML ONE (09:43)
[2018-05-28] MEDS ORDERED: FENTANYL PF 100 MCG/2ML ONE (09:43)
[2018-05-28] MEDS ORDERED: FLUMAZENIL 0.1 MG/1 ML, 5ML ONE (09:43)
[2018-05-28] MEDS ORDERED: LIDOCAINE-MPF 1%, 5ML ONE (09:45)
[2018-05-28] MEDS: FLUTICASONE NASAL SPRAY 16GM NAS SCH (11:15)
[2018-05-28] MEDS ORDERED: MAGNESIUM SULFATE PMX 2GM/50ML 50 ML IV ONE (11:30)
[2018-05-28] MEDS ORDERED: POTASSIUM CHLORIDE 20 MEQ TAB.ER.PRT PO ONE (11:30)
[2018-05-28 13:04] VITALS: BP 120/81
[2018-05-28 13:43] LABS: MICROSCOPIC INDICATED
[2018-05-28] MEDS: NS + 20MEQ KCL 1,000 ML IV SCH (13:52)
[2018-05-28 14:15] LABS: CULTURE INDICATED? YES
[2018-05-28 19:44] VITALS: BP 106/76
[2018-05-28] MEDS: ACETAMINOPHEN 325 MG TABLET PO PRN (20:13)
[2018-05-29] MEDS: HYDROmorphone 2 MG/ML, 1ML IVPush PRN (00:24)
[2018-05-29 02:34] VITALS: BP 122/78
[2018-05-29] MEDS: NS + 20MEQ KCL 1,000 ML IV SCH ×2 (04:29→18:27)
[2018-05-29 05:27] LABS: BASOPHILS # (AUTO) 0.04 x10^3/uL (0-0.1); BASOPHILS % (AUTO) 1 % (0-1); EOSINOPHILS # (AUTO) 0.07 x10^3/uL (0-0.4); EOSINOPHILS % (AUTO) 2 % (1-7); LYMPHOCYTES # (AUTO) 0.66 x10^3/uL (1-3.4); LYMPHOCYTES % (AUTO) 14 % (22-44); MD NO; MEAN CORPUSCULAR HEMOGLOBIN 29.3 pg (27.0-34.8); MEAN CORPUSCULAR HGB CONC 32.3 g/dL (32.4-35.8); MEAN CORPUSCULAR VOLUME 90.9 fL (80-100); MEAN PLATELET VOLUME 8.1 fL (7.4-10.4); MONOCYTES # (AUTO) 0.57 x10^3/uL (0.2-0.8); MONOCYTES % (AUTO) 12 % (2-9); NEUTROPHILS # (AUTO) 3.26 x10^3/uL (1.8-6.8); NEUTROPHILS % (AUTO) 71 % (42-75); PLATELET COUNT 324 x10^3/uL (130-400); RED BLOOD COUNT 4.03 x10^6/uL (3.82-5.3); RED CELL DISTRIBUTION WIDTH 16.8 % (9.6-15.2)
[2018-05-29 05:39] LABS: ANION GAP 7 mmol/L (5-15); CALCIUM 8.9 mg/dL (8.5-10.1); CHLORIDE 108 mmol/L (98-107); CREATININE 1.53 mg/dL (0.55-1.02)
[2018-05-29 08:43] VITALS: BP 147/97
[2018-05-29] MEDS: METOPROLOL TARTRATE 25 MG TABLET PO SCH ×2 (08:45→20:47)
[2018-05-29] MEDS: FLUTICASONE NASAL SPRAY 16GM NAS SCH (08:45)
[2018-05-29] MEDS: LORATADINE 10 MG TABLET PO SCH (08:45)
[2018-05-29] MEDS: DILTIAZEM CD 180 MG CAP.ER.24H PO SCH (08:45)
[2018-05-29] MEDS ORDERED: DIPHENHYDRAMINE 50 MG/ML, 1ML IVPush PRN (12:30)
[2018-05-29] MEDS: ONDANSETRON 2MG/ML, 2ML IVPush PRN (13:53)
[2018-05-29] MEDS: morphine SULFATE 10 MG/ML, 1ML IVPush PRN ×2 (13:54→18:27)
[2018-05-29 14:41] VITALS: BP 122/85
[2018-05-29 17:00] LABS: INTERNATIONAL NORMALIZED RATIO 1.24 (0.93-1.1)
[2018-05-29] MEDS ORDERED: WARFARIN 5 MG TABLET PO-COUM ONE (18:00)
[2018-05-29 20:06] VITALS: BP 136/82
[2018-05-29] MEDS: ACETAMINOPHEN 325 MG TABLET PO PRN (21:06)
[2018-05-30] VITALS (8 sets, daily range): BP systolic 118–165; BP diastolic 56–109
[2018-05-30] MEDS: morphine SULFATE 10 MG/ML, 1ML IVPush PRN ×4 (04:03→21:17)
[2018-05-30 08:09] LABS: INTERNATIONAL NORMALIZED RATIO 1.28 (0.93-1.1); PROTHROMBIN TIME 13.4 Seconds (9.6-11.5)
[2018-05-30 08:10] LABS: ANION GAP 6 mmol/L (5-15); CALCIUM 8.9 mg/dL (8.5-10.1); CHLORIDE 110 mmol/L (98-107); CREATININE 1.65 mg/dL (0.55-1.02)
[2018-05-30] MEDS: METOPROLOL TARTRATE 25 MG TABLET PO SCH ×2 (08:47→20:49)
[2018-05-30] MEDS: ENOXAPARIN 120MG/0.8ML SQ SCH ×2 (08:47→20:49)
[2018-05-30] MEDS: LORATADINE 10 MG TABLET PO SCH (08:47)
[2018-05-30] MEDS: DILTIAZEM CD 180 MG CAP.ER.24H PO SCH (08:47)
[2018-05-30] MEDS: FLUTICASONE NASAL SPRAY 16GM NAS SCH (08:48)
[2018-05-30] MEDS: ONDANSETRON 2MG/ML, 2ML IVPush PRN ×2 (14:57→19:09)
[2018-05-30] MEDS ORDERED: WARFARIN 5 MG TABLET PO-COUM ONE (18:00)
[2018-05-30] MEDS ORDERED: PROMETHAZINE 25 MG/ML, 1ML IM PRN (23:00)
[2018-05-31] MEDS ORDERED: ALBUTEROL SULFATE 2.5 MG/3 ML ONE (00:26)
[2018-05-31 02:25] VITALS: BP 119/82
[2018-05-31 05:29] LABS: INTERNATIONAL NORMALIZED RATIO 1.31 (0.93-1.1); PROTHROMBIN TIME 13.7 Seconds (9.6-11.5)
[2018-05-31 07:00] VITALS: BP 132/96
[2018-05-31] MEDS: LORATADINE 10 MG TABLET PO SCH (07:47)
[2018-05-31] MEDS: DILTIAZEM CD 180 MG CAP.ER.24H PO SCH (07:47)
[2018-05-31] MEDS: METOPROLOL TARTRATE 25 MG TABLET PO SCH (07:47)
[2018-05-31 07:54] LABS: ANION GAP 7 mmol/L (5-15); CHLORIDE 109 mmol/L (98-107); CREATININE 1.67 mg/dL (0.55-1.02)
[2018-05-31] MEDS: morphine SULFATE 10 MG/ML, 1ML IVPush PRN ×3 (08:00→21:10)
[2018-05-31 09:18] LABS: MEAN CORPUSCULAR HEMOGLOBIN 28.8 pg (27.0-34.8); MEAN CORPUSCULAR HGB CONC 31.6 g/dL (32.4-35.8); MEAN PLATELET VOLUME 7.9 fL (7.4-10.4); PLATELET COUNT 324 x10^3/uL (130-400); RED BLOOD COUNT 4.24 x10^6/uL (3.82-5.3); RED CELL DISTRIBUTION WIDTH 17.5 % (9.6-15.2)
[2018-05-31] MEDS: ENOXAPARIN 120MG/0.8ML SQ SCH ×2 (09:21→21:10)
[2018-05-31 09:22] LABS: BASOPHILS # (AUTO) 0.04 x10^3/uL (0-0.1); BASOPHILS % (AUTO) 1 % (0-1); EOSINOPHILS % (AUTO) 3 % (1-7); LYMPHOCYTES # (AUTO) 0.95 x10^3/uL (1-3.4); LYMPHOCYTES % (AUTO) 24 % (22-44); MD NO; MONOCYTES % (AUTO) 16 % (2-9); NEUTROPHILS # (AUTO) 2.19 x10^3/uL (1.8-6.8); NEUTROPHILS % (AUTO) 57 % (42-75)
[2018-05-31] MEDS: FLUTICASONE NASAL SPRAY 16GM NAS SCH (09:24)
[2018-05-31] MEDS ORDERED: FUROSEMIDE 20 MG/2 ML IV ONE (12:30)
[2018-05-31 12:40] VITALS: BP 123/79
[2018-05-31] MEDS: ALBUTEROL SULFATE 2.5 MG/3 ML NPPB PRN ×2 (12:50→19:04)
[2018-05-31 14:00] VITALS: BP 150/90
[2018-05-31 15:55] LABS: ANION GAP 9 mmol/L (5-15); CALCIUM 8.7 mg/dL (8.5-10.1); CHLORIDE 107 mmol/L (98-107); CREATININE 1.92 mg/dL (0.55-1.02)
[2018-05-31] MEDS ORDERED: OMNIPAQUE 350 MG/ML, 50 ML BOTTLE ONE (16:12)
[2018-05-31] MEDS: ONDANSETRON 2MG/ML, 2ML IVPush PRN (16:24)
[2018-05-31 17:31] VITALS: BP 170/100
[2018-05-31] MEDS: CARVEDILOL 3.125 MG TABLET PO SCH (17:33)
[2018-05-31] MEDS ORDERED: WARFARIN 7.5 MG TABLET PO-COUM ONE (18:00)
[2018-05-31 20:09] VITALS: BP 128/86
[2018-06-01 01:58] VITALS: BP 137/94
[2018-06-01 05:45] LABS: INTERNATIONAL NORMALIZED RATIO 1.45 (0.93-1.1); PROTHROMBIN TIME 15.2 Seconds (9.6-11.5)
[2018-06-01] MEDS: CARVEDILOL 3.125 MG TABLET PO SCH (06:30)
[2018-06-01 07:34] LABS: ANION GAP 9 mmol/L (5-15); CALCIUM 9.1 mg/dL (8.5-10.1); CHLORIDE 106 mmol/L (98-107); CREATININE 1.71 mg/dL (0.55-1.02)
[2018-06-01] MEDS: FLUTICASONE NASAL SPRAY 16GM NAS SCH (07:39)
[2018-06-01] MEDS: ENOXAPARIN 120MG/0.8ML SQ SCH ×2 (07:40→23:00)
[2018-06-01] MEDS: LORATADINE 10 MG TABLET PO SCH (07:40)
[2018-06-01] MEDS: DILTIAZEM CD 180 MG CAP.ER.24H PO SCH (07:40)
[2018-06-01 08:09] VITALS: BP 131/88
[2018-06-01] MEDS ORDERED: CARVEDILOL 3.125 MG TABLET ONE (10:22)
[2018-06-01] MEDS ORDERED: CARVEDILOL 6.25 MG TABLET PO ONE (10:30)
[2018-06-01] MEDS: PROCHLORPERAZINE 5 MG/ML, 2ML IM PRN (13:06)
[2018-06-01 13:56] VITALS: BP 139/96
[2018-06-01] MEDS ORDERED: WARFARIN 5 MG TABLET PO-COUM ONE (17:20)
[2018-06-01 17:37] VITALS: BP 134/93
[2018-06-01] MEDS: CARVEDILOL 12.5 MG TABLET PO SCH (17:39)
[2018-06-01] MEDS ORDERED: WARFARIN 10 MG TABLET PO-COUM ONE (18:00)
[2018-06-01] MEDS: ALBUTEROL SULFATE 2.5 MG/3 ML NPPB PRN (19:36)
[2018-06-01 20:28] VITALS: BP 125/91
[2018-06-01] MEDS: DILTIAZEM 60 MG TABLET PO SCH (22:59)
[2018-06-01] MEDS: PANTOPRAZOLE 40 MG IV IVPush SCH (23:00)
[2018-06-02 02:00] VITALS: BP 123/89
[2018-06-02] MEDS: DILTIAZEM 60 MG TABLET PO SCH ×4 (05:38→21:01)
[2018-06-02] MEDS: CARVEDILOL 12.5 MG TABLET PO SCH ×2 (05:38→18:06)
[2018-06-02 06:04] LABS: BASOPHILS # (AUTO) 0.05 x10^3/uL (0-0.1); BASOPHILS % (AUTO) 1 % (0-1); EOSINOPHILS % (AUTO) 3 % (1-7); LYMPHOCYTES # (AUTO) 0.66 x10^3/uL (1-3.4); LYMPHOCYTES % (AUTO) 17 % (22-44); MD NO; MEAN CORPUSCULAR HGB CONC 32.4 g/dL (32.4-35.8); MEAN CORPUSCULAR VOLUME 89.4 fL (80-100); MEAN PLATELET VOLUME 7.8 fL (7.4-10.4); MONOCYTES # (AUTO) 0.52 x10^3/uL (0.2-0.8); MONOCYTES % (AUTO) 14 % (2-9); NEUTROPHILS # (AUTO) 2.53 x10^3/uL (1.8-6.8); NEUTROPHILS % (AUTO) 66 % (42-75); PLATELET COUNT 297 x10^3/uL (130-400); RED BLOOD COUNT 4.14 x10^6/uL (3.82-5.3); RED CELL DISTRIBUTION WIDTH 17.3 % (9.6-15.2)
[2018-06-02 06:13] LABS: INTERNATIONAL NORMALIZED RATIO 1.87 (0.93-1.1); PROTHROMBIN TIME 19.4 Seconds (9.6-11.5)
[2018-06-02 06:17] LABS: ALANINE AMINOTRANSFERASE 25 U/L (12-78); ANION GAP 9 mmol/L (5-15); CALCIUM 8.6 mg/dL (8.5-10.1); CHLORIDE 107 mmol/L (98-107); CREATININE 1.58 mg/dL (0.55-1.02)
[2018-06-02 06:19] LABS: ALKALINE PHOSPHATASE 93 U/L (45-117); BILIRUBIN,TOTAL 0.7 mg/dL (0.2-1.0); TOTAL PROTEIN 6.3 g/dL (6.4-8.2)
[2018-06-02 07:45] VITALS: BP 119/81
[2018-06-02] MEDS: PANTOPRAZOLE 40 MG IV IVPush SCH ×2 (11:13→21:01)
[2018-06-02] MEDS: LORATADINE 10 MG TABLET PO SCH (11:13)
[2018-06-02] MEDS: FLUTICASONE NASAL SPRAY 16GM NAS SCH (11:13)
[2018-06-02] MEDS: ENOXAPARIN 120MG/0.8ML SQ SCH ×2 (11:13→21:01)
[2018-06-02] MEDS: ALBUTEROL SULFATE 2.5 MG/3 ML NPPB PRN ×2 (13:05→21:21)
[2018-06-02 14:04] VITALS: BP 125/84
[2018-06-02] MEDS ORDERED: WARFARIN 7.5 MG TABLET PO-COUM ONE (18:00)
[2018-06-02 18:49] VITALS: BP 122/90
[2018-06-02] MEDS: PROCHLORPERAZINE 5 MG/ML, 2ML IM PRN (19:48)
[2018-06-03 00:33] VITALS: BP 132/86
[2018-06-03] MEDS: ALBUTEROL SULFATE 2.5 MG/3 ML NPPB PRN ×3 (05:05→14:32)
[2018-06-03 06:33] LABS: INTERNATIONAL NORMALIZED RATIO 3.02 (0.93-1.1); PROTHROMBIN TIME 30.7 Seconds (9.6-11.5)
[2018-06-03 06:44] LABS: ALBUMIN 2.9 g/dL (3.4-5.0); ANION GAP 10 mmol/L (5-15); CALCIUM 8.5 mg/dL (8.5-10.1); CHLORIDE 108 mmol/L (98-107)
[2018-06-03 06:49] LABS: ALANINE AMINOTRANSFERASE 23 U/L (12-78); ALKALINE PHOSPHATASE 85 U/L (45-117); BILIRUBIN,TOTAL 0.7 mg/dL (0.2-1.0); CREATININE 1.47 mg/dL (0.55-1.02)
[2018-06-03] MEDS: DILTIAZEM 60 MG TABLET PO SCH ×4 (06:55→20:24)
[2018-06-03] MEDS: CARVEDILOL 12.5 MG TABLET PO SCH ×2 (06:55→17:26)
[2018-06-03 07:02] VITALS: BP 141/96
[2018-06-03] MEDS: PANTOPRAZOLE 40 MG IV IVPush SCH ×2 (10:16→20:23)
[2018-06-03] MEDS: ENOXAPARIN 120MG/0.8ML SQ SCH ×2 (10:17→20:23)
[2018-06-03] MEDS: FLUTICASONE NASAL SPRAY 16GM NAS SCH (10:17)
[2018-06-03] MEDS: LORATADINE 10 MG TABLET PO SCH (10:18)
[2018-06-03] MEDS: ACETAMINOPHEN 325 MG TABLET PO PRN (10:36)
[2018-06-03 14:16] VITALS: BP 138/68
[2018-06-03] MEDS ORDERED: FUROSEMIDE 20 MG/2 ML IV ONE (16:00)
[2018-06-03] MEDS ORDERED: POTASSIUM CHLORIDE 40 MEQ in SODIUM CHLORIDE 0.9% 500 ML IV ONE (16:00)
[2018-06-03] MEDS: GUAIFENESIN 200 MG TABLET PO PRN ×2 (16:08→22:50)
[2018-06-03] MEDS ORDERED: WARFARIN 2 MG TABLET PO-COUM ONE (18:00)
[2018-06-03 19:32] VITALS: BP 126/80
[2018-06-03] MEDS: ALBUTEROL SULFATE 2.5 MG/3 ML NPPB SCH (19:57)
[2018-06-03 20:23] VITALS: BP 131/82
[2018-06-04] VITALS (9 sets, daily range): BP systolic 115–147; BP diastolic 68–99
[2018-06-04] MEDS: DILTIAZEM 60 MG TABLET PO SCH ×2 (05:36→12:30)
[2018-06-04] MEDS: CARVEDILOL 12.5 MG TABLET PO SCH ×2 (05:36→18:25)
[2018-06-04 05:39] LABS: INTERNATIONAL NORMALIZED RATIO 3.97 (0.93-1.1); PROTHROMBIN TIME 39.9 Seconds (9.6-11.5)
[2018-06-04] MEDS: ALBUTEROL SULFATE 2.5 MG/3 ML NPPB SCH ×3 (07:02→21:00)
[2018-06-04] MEDS: FLUTICASONE NASAL SPRAY 16GM NAS SCH (09:56)
[2018-06-04] MEDS: LORATADINE 10 MG TABLET PO SCH (09:56)
[2018-06-04] MEDS: PANTOPRAZOLE 40 MG IV IVPush SCH ×2 (09:56→20:31)
[2018-06-04] MEDS: PROCHLORPERAZINE 5 MG/ML, 2ML IM PRN (12:53)
[2018-06-04] MEDS: GUAIFENESIN 200 MG TABLET PO PRN ×2 (14:35→21:55)
[2018-06-04] MEDS ORDERED: POTASSIUM CHLORIDE 40 MEQ in SODIUM CHLORIDE 0.9% 500 ML IV ONE (16:30)
[2018-06-04] MEDS ORDERED: FUROSEMIDE 20 MG/2 ML IV ONE (16:30)
[2018-06-04] MEDS: DILTIAZEM 90 MG TABLET PO SCH ×2 (17:03→20:31)
[2018-06-04] MEDS ORDERED: WARFARIN 1 MG TABLET PO-COUM ONE (18:00)
[2018-06-05 02:00] VITALS: BP 134/80
[2018-06-05 05:21] LABS: INTERNATIONAL NORMALIZED RATIO 2.77 (0.93-1.1); PROTHROMBIN TIME 28.2 Seconds (9.6-11.5)
[2018-06-05 05:26] LABS: ANION GAP 7 mmol/L (5-15); CALCIUM 8.3 mg/dL (8.5-10.1); CHLORIDE 109 mmol/L (98-107); CREATININE 1.69 mg/dL (0.55-1.02)
[2018-06-05 06:05] VITALS: BP 110/64
[2018-06-05] MEDS: CARVEDILOL 12.5 MG TABLET PO SCH ×2 (06:06→18:00)
[2018-06-05] MEDS: DILTIAZEM 90 MG TABLET PO SCH ×3 (06:06→16:00)
[2018-06-05 06:23] VITALS: BP 123/83
[2018-06-05] MEDS: ALBUTEROL SULFATE 2.5 MG/3 ML NPPB SCH ×3 (06:31→20:52)
[2018-06-05] MEDS: LORATADINE 10 MG TABLET PO SCH (10:11)
[2018-06-05] MEDS: PANTOPRAZOLE 40 MG IV IVPush SCH (10:11)
[2018-06-05] MEDS: FLUTICASONE NASAL SPRAY 16GM NAS SCH (10:12)
[2018-06-05] MEDS: PROCHLORPERAZINE 5 MG/ML, 2ML IM PRN (11:18)
[2018-06-05] MEDS: GUAIFENESIN 200 MG TABLET PO PRN (11:20)
[2018-06-05 12:44] VITALS: BP 118/81
[2018-06-05] MEDS: PANTOPROZOLE 40MG TABLET PO SCH ×2 (17:00→17:14)
[2018-06-05] MEDS ORDERED: WARFARIN 2.5 MG TABLET PO-COUM ONE (18:00)
[2018-06-05 20:00] VITALS: BP 115/82
[2018-06-05 23:45] VITALS: BP 110/78
[2018-06-05 23:56] LABS: INTERNATIONAL NORMALIZED RATIO 2.55 (0.93-1.1); PROTHROMBIN TIME 26.1 Seconds (9.6-11.5)
[2018-06-06 01:40] VITALS: BP 106/73
[2018-06-06] MEDS: DILTIAZEM 90 MG TABLET PO SCH ×5 (01:44→17:15)
[2018-06-06 05:56] LABS: BASOPHILS # (AUTO) 0.02 x10^3/uL (0-0.1); BASOPHILS % (AUTO) 0 % (0-1); EOSINOPHILS # (AUTO) 0.11 x10^3/uL (0-0.4); EOSINOPHILS % (AUTO) 3 % (1-7); LYMPHOCYTES # (AUTO) 0.74 x10^3/uL (1-3.4); LYMPHOCYTES % (AUTO) 18 % (22-44); MD NO; MEAN CORPUSCULAR HEMOGLOBIN 29.4 pg (27.0-34.8); MEAN CORPUSCULAR HGB CONC 32.8 g/dL (32.4-35.8); MEAN CORPUSCULAR VOLUME 89.6 fL (80-100); MEAN PLATELET VOLUME 7.9 fL (7.4-10.4); MONOCYTES # (AUTO) 0.64 x10^3/uL (0.2-0.8); MONOCYTES % (AUTO) 16 % (2-9); NEUTROPHILS # (AUTO) 2.54 x10^3/uL (1.8-6.8); NEUTROPHILS % (AUTO) 63 % (42-75); PLATELET COUNT 243 x10^3/uL (130-400); RED BLOOD COUNT 4.07 x10^6/uL (3.82-5.3); RED CELL DISTRIBUTION WIDTH 16.9 % (9.6-15.2)
[2018-06-06 06:00] LABS: INTERNATIONAL NORMALIZED RATIO 2.47 (0.93-1.1); PROTHROMBIN TIME 25.3 Seconds (9.6-11.5)
[2018-06-06 06:03] LABS: CHLORIDE 109 mmol/L (98-107)
[2018-06-06 06:17] LABS: ALANINE AMINOTRANSFERASE 27 U/L (12-78); ALKALINE PHOSPHATASE 76 U/L (45-117); ANION GAP 7 mmol/L (5-15); BILIRUBIN,TOTAL 0.4 mg/dL (0.2-1.0); CALCIUM 8.3 mg/dL (8.5-10.1); CREATININE 1.79 mg/dL (0.55-1.02); TOTAL PROTEIN 6.3 g/dL (6.4-8.2)
[2018-06-06 06:18] VITALS: BP 128/91
[2018-06-06] MEDS: CARVEDILOL 12.5 MG TABLET PO SCH ×3 (06:31→17:33)
[2018-06-06] MEDS: PANTOPROZOLE 40MG TABLET PO SCH ×2 (06:31→17:14)
[2018-06-06] MEDS: PROCHLORPERAZINE 5 MG/ML, 2ML IM PRN (06:34)
[2018-06-06] MEDS: ALBUTEROL SULFATE 2.5 MG/3 ML NPPB SCH ×3 (06:45→19:48)
[2018-06-06 08:05] VITALS: BP 104/72
[2018-06-06] MEDS: LORATADINE 10 MG TABLET PO SCH (08:23)
[2018-06-06] MEDS: FLUTICASONE NASAL SPRAY 16GM NAS SCH (08:24)
[2018-06-06 12:37] VITALS: BP 112/77
[2018-06-06] MEDS: SODIUM CHLORIDE 0.9% 1,000 ML IV SCH (16:14)
[2018-06-06] MEDS ORDERED: WARFARIN 5 MG TABLET PO-COUM SCH (18:00)
[2018-06-06 19:10] VITALS: BP 120/86
[2018-06-06] MEDS ORDERED: DILTIAZEM 90 MG TABLET PO SCH (21:00)
[2018-06-06 21:37] VITALS: BP 122/83
[2018-06-07] VITALS (7 sets, daily range): BP systolic 115–137; BP diastolic 78–93
[2018-06-07] MEDS: SODIUM CHLORIDE 0.9% 1,000 ML IV SCH (03:51)
[2018-06-07] MEDS: DILTIAZEM 90 MG TABLET PO SCH ×4 (06:04→22:10)
[2018-06-07] MEDS: PANTOPROZOLE 40MG TABLET PO SCH ×2 (06:05→17:04)
[2018-06-07] MEDS: CARVEDILOL 12.5 MG TABLET PO SCH ×2 (06:05→17:04)
[2018-06-07 08:50] LABS: ALBUMIN 3.1 g/dL (3.4-5.0); ANION GAP 6 mmol/L (5-15); CALCIUM 8.5 mg/dL (8.5-10.1); CHLORIDE 111 mmol/L (98-107); CREATININE 1.57 mg/dL (0.55-1.02)
[2018-06-07 08:57] LABS: INTERNATIONAL NORMALIZED RATIO 2.26 (0.93-1.1); PROTHROMBIN TIME 23.2 Seconds (9.6-11.5)
[2018-06-07] MEDS: FLUTICASONE NASAL SPRAY 16GM NAS SCH (10:00)
[2018-06-07] MEDS: LORATADINE 10 MG TABLET PO SCH (10:01)
[2018-06-07] MEDS ORDERED: CARV12.543 PO (10:51)
[2018-06-07] MEDS ORDERED: DILT90TA PO (10:51)
[2018-06-07] MEDS ORDERED: PANT40TA5 PO (10:51)
[2018-06-07] MEDS ORDERED: WARF5TAB PO-COUM (10:51)
[2018-06-07] MEDS: PROCHLORPERAZINE 5 MG/ML, 2ML IM PRN (15:17)
[2018-06-07] MEDS ORDERED: WARFARIN 5 MG TABLET PO-COUM SCH (18:00)
[2018-06-07] MEDS: ALBUTEROL SULFATE 2.5 MG/3 ML NPPB SCH ×2 (20:30→21:00)
[2018-06-08 01:00] VITALS: BP 114/75
[2018-06-08] MEDS: ACETAMINOPHEN 325 MG TABLET PO PRN (02:52)
[2018-06-08 05:32] VITALS: BP 129/83
[2018-06-08] MEDS: PANTOPROZOLE 40MG TABLET PO SCH (05:33)
[2018-06-08] MEDS: CARVEDILOL 12.5 MG TABLET PO SCH (05:33)
[2018-06-08] MEDS: DILTIAZEM 90 MG TABLET PO SCH ×2 (05:33→12:01)
[2018-06-08 05:47] LABS: INTERNATIONAL NORMALIZED RATIO 2.13 (0.93-1.1); PROTHROMBIN TIME 21.9 Seconds (9.6-11.5)
[2018-06-08 07:20] VITALS: BP 116/77
[2018-06-08] MEDS: FLUTICASONE NASAL SPRAY 16GM NAS SCH (09:38)
[2018-06-08] MEDS: LORATADINE 10 MG TABLET PO SCH (09:39)
[2018-06-08 11:50] VITALS: BP 130/86
[2018-06-08 13:50] VITALS: BP 124/82
[2018-06-08] MEDS ORDERED: WARFARIN 2 MG TABLET PO-COUM SCH (18:00)
== END 2018-06-08 15:46 | disposition home or self-care (01) | DRG 919 ==
LOC: ED 20:46 → EDIP 21:00 → 4NOR 22:25 → 5SO 05-30 16:14
PROVIDERS: ADMIT Internal Medicine; ATTEND Hospitalist
PROC: 0F9430Z Drainage of Gallbladder with Drainage Device, Percutaneous Approach (ICD-10-PCS; principal; 2018-05-28)
DX: K91.870 Postprocedural hematoma of a digestive system organ or structure following a digestive system procedure (principal); I50.33 Acute on chronic diastolic (congestive) heart failure; N17.0 Acute kidney failure with tubular necrosis; E44.1 Mild protein-calorie malnutrition; D68.69 Other thrombophilia; I13.0 Hypertensive heart and chronic kidney disease with heart failure and stage 1 through stage 4 chronic kidney disease, or unspecified chronic kidney disease; I42.0 Dilated cardiomyopathy; I82.411 Acute embolism and thrombosis of right femoral vein; R18.8 Other ascites; Z68.41 Body mass index [BMI] 40.0-44.9, adult; Y83.8 Other surgical procedures as the cause of abnormal reaction of the patient, or of later complication, without mention of misadventure at the time of the procedure; R10.11 Right upper quadrant pain; E11.22 Type 2 diabetes mellitus with diabetic chronic kidney disease; E66.01 Morbid (severe) obesity due to excess calories; E78.5 Hyperlipidemia, unspecified; E87.6 Hypokalemia; G89.29 Other chronic pain; I07.1 Rheumatic tricuspid insufficiency; R11.2 Nausea with vomiting, unspecified; N18.3 Chronic kidney disease, stage 3 (moderate); I27.20 Pulmonary hypertension, unspecified; I48.2 Chronic atrial fibrillation; I87.001 Postthrombotic syndrome without complications of right lower extremity; J45.909 Unspecified asthma, uncomplicated; K22.8 Other specified diseases of esophagus; K76.9 Liver disease, unspecified; Z79.01 Long term (current) use of anticoagulants; Z82.49 Family history of ischemic heart disease and other diseases of the circulatory system; Z86.711 Personal history of pulmonary embolism; Z86.718 Personal history of other venous thrombosis and embolism; Z90.49 Acquired absence of other specified parts of digestive tract; R00.0 Tachycardia, unspecified
CPT/HCPCS: 36415; 49405; 74176; 74177; 74220; 75989; 76705; 78226; 80048; 80053; 81001; 82040; 83605; 83690; 83735; 83880; 84100; 84443; 85014; 85018; 85025; 85610; 86140; 87070; 87075; 87086; 87205; 93005; 93306; 94640; 96374; 96375; 99156; 99157; G0378; J1170; J1650; J2250; J2405; J2550; J3010; J3480; J7613; Q9967; A9537; C1729; C1769; C9113; C9898; J0780; J1200; J1940; J2270; J2310; J3475; J7030; J7040